=== PATIENT | male | born 1965 ===

== ENCOUNTER 2019-01-26 19:17 | Emergency (ER) | payer OTHER ==
[2019-01-26 19:33] VITALS: RESP 18
[2019-01-26] MEDS ORDERED: Sodium Chloride 0.9% 1,000 ML IV ONE (19:46)
[2019-01-26] MEDS ORDERED: Sodium Chloride 0.9% 1,000 ML ONE (19:53)
--- NOTE | 2019-01-26 20:00 | C.PDOC ---
History Of Present Illness 53 y/o male presents to ED complaining of LLQ abdominal pain since 4 days ago. Denies vomiting, fever, chills, dysuria, hematuria, or other complaints. States last bowel movement was this afternoon that was normal. Reports that he lifts a lot for his job. Has not taken anything for the pain. Time Seen by Provider: 01/26/19 19:35 Chief Complaint (Nursing): Abdominal Pain History Per: Patient History/Exam Limitations: no limitations Onset/Duration Of Symptoms: Days Current Symptoms Are (Timing): Still Present Past Medical History Reviewed: Historical Data, Nursing Documentation, Vital Signs Vital Signs: Last Vital Signs Temp 98.2 F 01/26/19 19:24 Pulse 92 H 01/26/19 19:24 Resp 18 01/26/19 19:24 BP 161/96 H 01/26/19 19:24 Pulse Ox 96 01/26/19 19:24 Primary Care Provider: Julien Buenrostro Medical History PMH: HTN Denies: Chronic Kidney Disease Surgical History: Cholecystectomy Family History: States: No Known Family Hx - Social History Hx Alcohol Use: Yes Hx Substance Use: No - Immunization History Hx Tetanus Toxoid Vaccination: No Hx Influenza Vaccination: No Hx Pneumococcal Vaccination: No Review Of Systems Except As Marked, All Systems Reviewed And Found Negative. Constitutional: Negative for: Fever, Chills Cardiovascular: Negative for: Chest Pain Respiratory: Negative for: Shortness of Breath Gastrointestinal: Positive for: Abdominal Pain (LLQ). Negative for: Nausea, Vomiting Genitourinary: Negative for: Dysuria, Hematuria Physical Exam - Physical Exam Appears: Well, Non-toxic, No Acute Distress Skin: Warm, Dry Head: Normacephalic Eye(s): bilateral: Normal Inspection Oral Mucosa: Moist Neck: Supple Cardiovascular: Rhythm Regular, No Murmur Respiratory: Normal Breath Sounds, No Rales, No Rhonchi, No Wheezing Gastrointestinal/Abdominal: Soft, Tenderness (LLQ), No Guarding, No Rebound Back: No CVA Tenderness Extremity: Bilateral: Normal ROM Neurological/Psych: Oriented x3, Normal Speech ED Course And Treatment - Laboratory Results Result Diagrams: 01/26/19 20:17 01/26/19 20:17 O2 Sat by Pulse Oximetry: 96 (RA) Pulse Ox Interpretation: Normal - CT Scan/US CT abd/pelvis Other Rad Studies (CT/US): Read By Radiologist, Radiology Report Reviewed CT/US Interpretation: EXAM: CT Abdomen and Pelvis with IV contrast. CLINICAL HISTORY: Abdominal pain since 3 days. TECHNIQUE: Axial computed tomography images of the abdomen and pelvis with intravenous contrast. 100.00 mGy-cm. CONTRAST: With; 100MLS VISI 320. COMPARISON: None provided. FINDINGS: LUNG BASES: Mild atelectasis near the lung bases. LIVER: Mild diffuse fatty infiltration of liver. 2.2 cm cyst in the left lobe of liver. GALLBLADDER AND BILE DUCTS: There has been a cholecystectomy. PANCREAS: Unremarkable. SPLEEN: Unremarkable. ADRENAL GLANDS: Unremarkable. KIDNEYS, URETERS, AND BLADDER: There is a subcentimeter hypodensity at the midpole of the right kidney which is too small to adequately characterize. No hydronephrosis bilaterally. Bladder is predominantly decompressed but otherwise unremarkable. STOMACH AND BOWEL: Questionable focal narrowing at the distal sigmoid near series 401, image 126, versus underdistention. Please correlate clinically and if indicated this could be further evaluated colonoscopy. There is fatty stranding near the proximal sigmoid colon near series 401, images 118- 120. This is compatible with acute diverticulitis. There are a few small lymph nodes in the region as well. No evidence for perforation or abscess. No bowel obstruction. APPENDIX: Normal appendix. PERITONEUM: No free fluid. No free air. LYMPH NODES: No lymphadenopathy is evident. REPRODUCTIVE: There is a chunky calcification in the prostate. VASCULATURE: No evidence of abdominal aortic aneurysm. BONES: Mild multilevel degenerative spine changes. MISCE LLANEOUS: There is a tiny fat containing left inguinal hernia. IMPRESSION: 1. Sigmoid diverticulitis as described. No evidence for perforation or abscess. 2. Mild diffuse fatty infiltration of liver. 3. Questionable focal narrowing at the distal sigmoid near series 401, image 126, versus underdistention. Please correlate clinically and if indicated this could be further evaluated colonoscopy. 4. Additional, incidental findings as described above. . Electronically signed on January 26, 2019 10:59:43 PM EDT by: Porfirio Garcia M.D., Certified by [facility], Diagnostic Radiology Medical Decision Making Medical Decision Making: Plan: --Abd/Pel CT --Labs --UA --IV fluids Patient very well appearing, plan abx and f/u w/pcp. Patient agreeable w/POC. Disposition Counseled Patient/Family Regarding: Studies Performed, Diagnosis, Need For Followup - Disposition Referrals: Julien Buenrostro MD [Staff Provider] - Disposition: HOME/ ROUTINE Disposition Time: 23:10 Condition: STABLE Additional Instructions: ALEXANDREA ROMAN, thank you for letting us take care of you today. Your provider was Aundrea Xavier MD and you were treated for ABD PAIN. The emergency medical care you received today was directed at your acute symptoms. If you were prescribed any medication, please fill it and take as directed. It may take several days for your symptoms to resolve. Return to the Emergency Department if your symptoms worsen, do not improve, or if you have any other problems. A clear liquid diet is recommended for the next 2-3 days. Please contact your doctor for a follow up visit in 2 days. Bring any paperwork you were given at discharge with you along with any medications you are taking to your follow up visit. Our treatment cannot replace ongoing medical care by a primary care provider outside of the emergency department. Thank you for allowing the [facility] team to be part of your care today. If you had an X-Ray or CT scan: A Radiologist will review the ED reading if any change in treatment is needed we will contact you. If you had a blood, urine, or wound culture: It will take several days for the results, if any change in treatment is needed we will contact you. If you had an STI test: It will take 48 hours for the results. Please call after 1 week if you have not heard back. Prescriptions: Amoxicillin/Clavulanate [Augmentin 875 MG-125 MG] 1 tab PO BID #20 tab Instructions: Clear Liquid Diet, Diverticulitis (DC) Forms: [employer] (Indonesian), Gen Discharge Inst Indonesian Print Language: LITHUANIAN - POA Present On Arrival: None - Clinical Impression Clinical Impression: Diverticulitis - Scribe Statement The provider has reviewed the documentation as recorded by the Abram Sequeira Provider Attestation: All medical record entries made by the Pelonibnoe were at my direction and personally dictated by me. I have reviewed the chart and agree that the record accurately reflects my personal performance of the history, physical exam, medical decision making, and the department course for this patient. I have also personally directed, reviewed, and agree with the discharge instructions and disposition.
[2019-01-26 20:10] LABS: BASO # 0.1 K/uL (0.0-0.2); BASO % 0.6 % (0.0-2.0); EOS # 0.1 K/uL (0.0-0.7); LYMPH # 1.8 K/uL (1.0-4.3); LYMPH % 20.6 % (20.0-40.0); MEAN CELL VOLUME 86.6 fL (80.0-94.0); MEAN CORPUSCULAR HEMOGLOBIN 29.8 pg (27.0-31.0); MEAN CORPUSCULAR HGB CONC 34.4 g/dL (33.0-37.0); MEAN PLATELET VOLUME 8.1 fL (7.2-11.7); MONO # 0.5 K/uL (0.0-0.8); MONO % 5.3 % (0.0-10.0); NEUT # 6.3 K/uL (1.8-7.0); NEUT % 72.5 % (50.0-75.0); RBC 5.05 Mil/uL (4.40-5.90); RED CELL DISTRIBUTION WIDTH 12.8 % (11.5-14.5); WHITE BLOOD COUNT 8.7 K/uL (4.8-10.8)
[2019-01-26 20:19] LABS: URINE BACTERIA RARE (<OCC); URINE BILIRUBIN NEGATIVE (NEGATIVE); URINE BLOOD 2+ (NEGATIVE); URINE CLARITY Clear (Clear); URINE COLOR Yellow (YELLOW); URINE GLUCOSE (UA) NORMAL (Normal); URINE LEUKOCYTE ESTERASE NEG Leu/uL (Negative); URINE PROTEIN NEGATIVE (NEGATIVE); URINE UROBILINOGEN NORMAL mg/dL (0.2-1.0)
[2019-01-26 20:26] LABS: ALB/GLOB RATIO 1.4 (1.0-2.1); ALBUMIN 4.5 g/dL (3.5-5.0); ALT/SGPT 40 U/L (21-72); AST/SGOT 31 U/L (17-59); BLOOD UREA NITROGEN 19 mg/dL (9-20); CALCIUM 9.5 mg/dl (8.6-10.4); GFR NON-AFRICAN AMERICAN > 60; LIPASE 76 U/L (23-300)
[2019-01-26] MEDS ORDERED: Iodixanol 320 MG/ML 100 ML BOTTLE IV ONE (20:47)
[2019-01-26] MEDS ORDERED: Amoxicillin-Clav 875-125 mg Tab PO STA (23:09)
[2019-01-26] MEDS ORDERED: Amoxicillin-Clav 875-125 mg Tab PO ONE (23:25)
[2019-01-26 23:41] VITALS: BP 143/83; PULSE 76; TEMP 98.3
--- NOTE | 2019-01-27 12:04 | CT ---
Date of service: 01/26/2019 PROCEDURE: CT Abdomen and Pelvis with contrast HISTORY: abd pain COMPARISON: None available. TECHNIQUE: Contrast dose: 100 mL Visipaque 320 IV Radiation dose: Total exam DLP = 1256.13 mGy-cm. This CT exam was performed using one or more of the following dose reduction techniques: Automated exposure control, adjustment of the mA and/or kV according to patient size, and/or use of iterative reconstruction technique. FINDINGS: LOWER THORAX: No visible consolidation, pleural effusion, or pneumothorax. LIVER: Nonspecific 7 mm region of enhancement within the posterior right hepatic lobe (series 401, image 35). 2.2 cm left hepatic lobe hypodensity measures approximately 2 HU consistent with a cyst. Hypoattenuation of the liver compatible with hepatic steatosis. GALLBLADDER AND BILE DUCTS: Cholecystectomy. PANCREAS: Unremarkable. SPLEEN: Unremarkable. ADRENALS: Unremarkable. KIDNEYS AND URETERS: The kidneys enhance symmetrically. No hydronephrosis or obstructing calculus identified. Too small to characterize 7 mm right upper pole renal hypodensity, statistically likely cyst. VASCULATURE: No aortic aneurysm. No atherosclerotic calcification or mural plaque present. BOWEL: Stomach is nondistended. Lack of oral contrast limits evaluation for bowel pathology. Bowel loops appear within normal limits of caliber without evidence of obstruction. Diverticulosis with wall thickening and inflammatory changes of the sigmoid colon consistent with acute diverticulitis. Question narrowing of the distal sigmoid versus under distention. APPENDIX: The appendix appears within normal limits of caliber. No secondary signs of acute appendicitis. PERITONEUM: No significant free fluid. No definite free air. LYMPH NODES: No bulky adenopathy identified. BLADDER: Unremarkable. REPRODUCTIVE: Unremarkable. BONES: Mild degenerative changes. OTHER FINDINGS: None. IMPRESSION: Diverticulosis with wall thickening and inflammatory changes of the sigmoid colon consistent with acute diverticulitis. Question narrowing of the distal sigmoid versus under distention. Nonspecific 7 mm region of enhancement within the posterior right hepatic lobe; dedicated cross-sectional imaging of the liver recommended for further characterization. 2.2 cm left hepatic lobe hypodensity measures approximately 2 HU consistent with a cyst. Hypoattenuation of the liver compatible with hepatic steatosis. Cholecystectomy. Too small to characterize 7 mm right upper pole renal hypodensity, statistically likely cyst. Additional findings as above. Preliminary impression was provided by MD[facility]Voice. Study marked for PA review.
[2019-01-28 18:07] VITALS: O2SAT 96
== END 2019-01-26 23:40 | disposition home or self-care (01) ==
LOC: C.ER 19:17
DX: K57.32 Diverticulitis of large intestine without perforation or abscess without bleeding (principal)
CPT/HCPCS: 74177; 80053; 81001; 83690; 85025; 99284; J7030; Q9967